=== PATIENT | male | born 1950 | race Caucasian/White ===

== ENCOUNTER 2022-07-19 11:07 | Outpatient (OUT) | payer MEDICARE, SELFPAY | END 2022-07-19 11:08 | disposition home or self-care (01) | LOC: WC 11:08 | PROVIDERS: PCP Family Medicine; Visit Provider Podiatrist Foot & Ankle Surgery | DX: E11.621 Type 2 diabetes mellitus with foot ulcer (principal); L97.412 Non-pressure chronic ulcer of right heel and midfoot with fat layer exposed; L97.411 Non-pressure chronic ulcer of right heel and midfoot limited to breakdown of skin; L60.3 Nail dystrophy; M86.471 Chronic osteomyelitis with draining sinus, right ankle and foot; E11.40 Type 2 diabetes mellitus with diabetic neuropathy, unspecified; E11.319 Type 2 diabetes mellitus with unspecified diabetic retinopathy without macular edema; E11.65 Type 2 diabetes mellitus with hyperglycemia; M20.40 Other hammer toe(s) (acquired), unspecified foot; E78.49 Other hyperlipidemia; I10 Essential (primary) hypertension; I21.9 Acute myocardial infarction, unspecified; E66.8 Other obesity; M86.671 Other chronic osteomyelitis, right ankle and foot; I73.9 Peripheral vascular disease, unspecified | CPT/HCPCS: 11042; 29445 ==